=== PATIENT | male | born 1980 ===

== ENCOUNTER 2018-07-29 18:37 | Emergency (ER) | payer SELFPAY ==
[2018-07-29] MEDS ORDERED: Sodium Chloride 0.9% 1,000 ML IV STA ×2 (18:56)
--- NOTE | 2018-07-29 19:15 | ED PDOC ---
HPI:Nausea, Vomiting, Diarrhea Time Seen by Provider: 07/29/18 18:55 Chief Complaint (Nursing): GI Problem Chief Complaint (Provider): Vomiting History Per: Patient History/Exam Limitations: no limitations Onset/Duration Of Symptoms: Days (x1) Current Symptoms Are (Timing): Still Present Additional Complaint(s): 37 year old male presents with multiple episodes of vomiting throughout the day. Patient states he felt fine last night and woke up this morning and immediately vomited. He states he has not tolerated food and water at any point today. He reports vomit had chunks of blood maybe 2-3 teaspoons. Patient has no past med history and has not taken medications. He indicates not having seen a doctor in many years. Denies CP, SOB, numbness, or weakness but does have generalized back pain. PMD: none Past Medical History Reviewed: Historical Data, Nursing Documentation, Vital Signs Vital Signs: Last Vital Signs Temp 98.5 F 07/29/18 18:50 Pulse 106 H 07/29/18 18:50 Resp 16 07/29/18 18:50 BP 56/32 L 07/29/18 18:50 Pulse Ox - Medical History PMH: No Chronic Diseases - Surgical History Surgical History: No Surg Hx - Family History Family History: States: Unknown Family Hx - Social History Current smoker - smoking cessation education provided: No Alcohol: Social Drugs: Denies - Home Medications Home Medications: Ambulatory Orders Medication Instructions Recorded Famotidine [Pepcid] 20 mg PO BID #20 tab 07/29/18 Ondansetron ODT [Zofran ODT] 4 mg PO Q8 PRN #12 odt 07/29/18 RX: Omeprazole 20 mg PO DAILY #30 capsule. 07/29/18 - Allergies Allergies/Adverse Reactions: Allergies Allergy/AdvReac Type Severity Reaction Status Date / Time No Known Allergies Allergy Verified 07/29/18 18:50 Review of Systems ROS Statement: Except As Marked, All Systems Reviewed And Found Negative Cardiovascular: Negative for: Chest Pain Respiratory: Negative for: Shortness of Breath Gastrointestinal: Positive for: Vomiting (with blood) Musculoskeletal: Positive for: Back Pain (generalized) Neurological: Negative for: Weakness, Numbness Physical Exam - Reviewed Nursing Documentation Reviewed: Yes Vital Signs Reviewed: Yes - Physical Exam Appears: Positive for: Non-toxic, No Acute Distress Head Exam: Positive for: ATRAUMATIC, NORMOCEPHALIC Skin: Positive for: Pallor Eye Exam: Positive for: EOMI, PERRL, Other (Conjunctival pallor) ENT: Positive for: Pharynx Is (nonbloody and no swelling) Neck: Positive for: Normal, Painless ROM Cardiovascular/Chest: Positive for: Regular Rate, Rhythm. Negative for: Murmur Respiratory: Positive for: Normal Breath Sounds. Negative for: Wheezing, Respiratory Distress Gastrointestinal/Abdominal: Positive for: Normal Exam, Soft. Negative for: Tenderness, Mass Back: Negative for: L CVA Tenderness, R CVA Tenderness, Vertebral Tenderness (to palpation of spine) Rectal: Positive for: Other (Normal bowel sounds) Extremity: Positive for: Normal ROM Neurologic/Psych: Positive for: Alert, Oriented. Negative for: Motor/Sensory Deficits - Laboratory Results Result Diagrams: 07/29/18 22:56 07/29/18 20:28 Medical Decision Making Medical Decision Making: Initial Impression: workup for gastritis vs upper GI bleed Initial Plan: --Type and screen --CT abd/pelvis --ECG --CMP --Lipase stat --Troponin --CBC --D Dimer --Partial thromboplastin --Prothrombin --Chest X-ray --Sodium chloride 1000mL IV --Protonix 40mg IV --Zofran 4mg IV --Urinalysis Patient was hypotensive on arrival. Given 2L of IV fluid with zofran and protonics per GI bleed. All labs sent. CT abd/pelvis with contrast. 19:00 Patient signed out to Dr. Harris for follow up of imaging and labs. Scribe Attestation: Documented by Jovani Corley acting as a scribe for Maria E Veliz MD. Provider Scribe Attestation: All medical record entries made by the Scribe were at my direction and personally dictated by me. I have reviewed the chart and agree that the record accurately reflects my personal performance of the history, physical exam, medical decision making, and the department course for this patient. I have also personally directed, reviewed, and agree with the discharge instructions and disposition. Disposition - Clinical Impression Clinical Impression: Vomiting - Disposition Referrals: [facility] [Outside] Kishore Collado MD [Medical Doctor] - Disposition Time: 19:00 Condition: IMPROVED Prescriptions: Famotidine [Pepcid] 20 mg PO BID #20 tab RX: Omeprazole 20 mg PO DAILY #30 capsule. Ondansetron ODT [Zofran ODT] 4 mg PO Q8 PRN #12 odt PRN Reason: Nausea/Vomiting Instructions: Nausea and Vomiting, Adult (DC) Forms: [facility] (Georgian) Print Language: ROMANSH
--- NOTE | 2018-07-29 19:40 | ED PDOC ---
- Laboratory Results Result Diagrams: 07/29/18 22:56 07/29/18 20:28 - ECG O2 Sat by Pulse Oximetry: 98 Medical Decision Making Medical Decision Makin:00 Patient endorsed to me from Dr. Veliz. Pending blood work and reevaluation. 22:00 CT A/P negative Patient reassessed and is feeling much improved Patient eating full meal tray, no longer having any pain, nausea, or vomiting 2nd CBC drawn after 2L of NS administered, so likely dilutional, still not low enough for transfusion, and not concerned for acute GI bleed at this time Will place patient on PPI and have him followup in [facility] Adivsed patient to return to ED for any worsening vomiting, hematemasis, dark stools, or any other concerning symptoms Patient very well appearing with normal vitals upon discharge Scribe Attestation: Documented by Jovani Corley acting as a scribe for Vazquez Harris MD. Provider Scribe Attestation: All medical record entries made by the Scribe were at my direction and personally dictated by me. I have reviewed the chart and agree that the record accurately reflects my personal performance of the history, physical exam, medical decision making, and the department course for this patient. I have also personally directed, reviewed, and agree with the discharge instructions and disposition. Disposition - Clinical Impression Clinical Impression: Vomiting - POA Present On Arrival: None - Disposition Referrals: [facility] [Outside] Kishore Collado MD [Medical Doctor] - Disposition: Routine/Home Disposition Time: 23:23 Condition: IMPROVED Prescriptions: Famotidine [Pepcid] 20 mg PO BID #20 tab Omeprazole 20 mg PO DAILY #30 capsule. Ondansetron ODT [Zofran ODT] 4 mg PO Q8 PRN #12 odt PRN Reason: Nausea/Vomiting Instructions: Nausea and Vomiting, Adult (DC) Forms: [facility] (Uzbek) Print Language: MAORI
[2018-07-29] MEDS ORDERED: Sodium Chloride 0.9% 50 ML IV ONE (19:42)
[2018-07-29] MEDS ORDERED: Iohexol 300 100 ML IJ ONE (19:42)
[2018-07-29 20:39] LABS: BASO % 0.3 % (0.0-2.0); EOS % 0.1 % (0.0-4.0); HEMOGLOBIN 10.3 g/dL (12.0-18.0); LYMPH # 1.7 K/uL (1.0-4.3); LYMPH % 16.7 % (20.0-40.0); MEAN CELL VOLUME 88.8 fl (80.0-94.0); MEAN CORPUSCULAR HEMOGLOBIN 30.6 pg (27.0-31.0); MEAN CORPUSCULAR HGB CONC 34.5 g/dL (33.0-37.0); MONO # 0.5 K/uL (0.0-0.8); MONO % 4.8 % (0.0-10.0); NEUT % 78.1 % (50.0-75.0); RBC 3.37 Mil/uL (4.40-5.90); RED CELL DISTRIBUTION WIDTH 12.9 % (11.5-14.5); WHITE BLOOD COUNT 10.3 K/uL (4.8-10.8)
[2018-07-29 20:40] LABS: PROTHROMBIN TIME 11.4 Seconds (9.8-13.1)
[2018-07-29 20:41] LABS: PARTIAL THROMBOPLASTIN TIME 22.8 Seconds (25.6-37.1)
[2018-07-29 20:43] LABS: ALB/GLOB RATIO 1.4 (1.0-2.1); ALBUMIN 3.9 g/dL (3.5-5.0); ALT/SGPT 30 U/L (21-72); AST/SGOT 42 U/L (17-59); BLOOD UREA NITROGEN 59 mg/dl (9-20); CALCIUM 8.5 mg/dL (8.4-10.2); GFR NON-AFRICAN AMERICAN > 60; LIPASE 106 U/L (23-300)
[2018-07-29 20:53] LABS: D DIMER < 200 ng/mlDDU (0-230)
[2018-07-29 21:41] VITALS: RESP 17; O2SAT 98
[2018-07-29 22:52] LABS: URINE BACTERIA RARE (<OCC); URINE BILIRUBIN NEGATIVE (NEGATIVE); URINE BLOOD NEGATIVE (NEGATIVE); URINE CLARITY CLEAR (Clear); URINE COLOR STRAW (YELLOW); URINE GLUCOSE (UA) NEG (Normal); URINE LEUKOCYTE ESTERASE NEG Leu/uL (Negative); URINE PROTEIN NEGATIVE (NEGATIVE); URINE UROBILINOGEN 0.2-1.0 mg/dL (0.2-1.0)
[2018-07-29 23:01] LABS: HEMOGLOBIN 8.8 g/dL (12.0-18.0); MEAN CELL VOLUME 88.7 fl (80.0-94.0); RBC 2.84 Mil/uL (4.40-5.90); RED CELL DISTRIBUTION WIDTH 12.6 % (11.5-14.5); WHITE BLOOD COUNT 9.4 K/uL (4.8-10.8)
[2018-07-30 00:06] VITALS: BP 118/63; PULSE 80; TEMP 98.7
--- NOTE | 2018-07-30 07:56 | CARD ---
APPROVED REPORT Date of service: 07/29/2018 EKG Measurement Heart [id number] <Conclusion> Normal sinus rhythm Normal ECG
--- NOTE | 2018-07-30 08:40 | RAD ---
Date of service: 07/29/2018 HISTORY: possible admission COMPARISON: No prior. FINDINGS: LUNGS: Single frontal portable view of the chest reveals evidence of mild subtle bibasilar volume loss. No focal infiltrate, CHF, and/or effusion is noted. Heart is probably within normal limits of size. PLEURA: No significant pleural effusion identified, no pneumothorax apparent. CARDIOVASCULAR: Normal. OSSEOUS STRUCTURES: No significant abnormalities. VISUALIZED UPPER ABDOMEN: Normal. OTHER FINDINGS: None. IMPRESSION: No active disease.
--- NOTE | 2018-07-30 12:48 | CT ---
Date of service: 07/29/2018 PROCEDURE: CT Abdomen and Pelvis with contrast HISTORY: vomiting and possible GI bleed COMPARISON: None. TECHNIQUE: Contrast dose: 95 mL Radiation dose: Total exam DLP = 663 mGy-cm. This CT exam was performed using one or more of the following dose reduction techniques: Automated exposure control, adjustment of the mA and/or kV according to patient size, and/or use of iterative reconstruction technique. FINDINGS: LOWER THORAX: Unremarkable. LIVER: Liver is mildly fatty infiltrated, without evidence of focal mass or intrahepatic ductal dilatation. GALLBLADDER AND BILE DUCTS: Unremarkable. PANCREAS: Unremarkable. No gross lesion or ductal dilatation. SPLEEN: Unremarkable. ADRENALS: Unremarkable. No mass. KIDNEYS AND URETERS: Unremarkable. No hydronephrosis. No solid mass. VASCULATURE: Unremarkable. No aortic aneurysm. BOWEL: Stomach is decompressed limiting evaluation. No appreciable stomach wall thickening or abnormal enhancement in the stomach is noted. Examination was not performed in the angiographic phase, limiting evaluation for gastrointestinal bleeding. Duodenum is unremarkable. Remainder of the colon shows no evidence of bowel wall thickening or pericolonic inflammatory change. No appreciable small bowel fold thickening or small bowel dilatation is noted. Distal esophagus is unremarkable. APPENDIX: Normal appendix. PERITONEUM: Unremarkable. No free fluid. No free air. LYMPH NODES: Unremarkable. No enlarged lymph nodes. BLADDER: Unremarkable. REPRODUCTIVE: Unremarkable. BONES: No acute fracture. OTHER FINDINGS: None. IMPRESSION: Unremarkable CT scan of the abdomen pelvis for acute inflammatory process. No intra abdominal mass. No appreciable gastric mass or gastritis appreciated. No appreciable colitis noted. Fatty infiltration of the liver. This agrees with preliminary report provided by the on-call radiologist.
== END 2018-07-29 23:39 | disposition home or self-care (01) ==
LOC: H.ER 18:37
DX: R11.10 Vomiting, unspecified (principal); M54.9 Dorsalgia, unspecified
CPT/HCPCS: 71045; 74177; 80053; 81003; 83690; 84484; 85025; 85027; 85378; 85610; 85730; 86850; 86900; 93005; 96361; 96374; 96375; 99285; C9113; J2405; J7030; Q9967